=== PATIENT | female | born 1995 | race Caucasian/White ===

== ENCOUNTER → 2024-02-09 13:42 | Outpatient (CLI) | payer OTHER, SELFPAY ==
--- NOTE | 2024-02-09 14:28 | DI.MRI.S_ITS ---
PROCEDURE: MR HIP RT WO CON INDICATIONS: Right hip pain TECHNIQUE: Noncontrast coronal T1 spin echo and STIR through the bony pelvis. Coronal and axial T2 fast spin echo with fat saturation, sagittal T1 spin echo, and oblique axial T2 fast spin echo with fat saturation through the hip. COMPARISON: None. FINDINGS: Image quality: Excellent. Bones and joints: The marrow signal is within normal limits. There is no acute fracture or dislocation. There is normal morphology of the femoral heads without osteonecrosis. The hip joint and sacroiliac joints are preserved without any significant effusions. Tendons and ligaments: There is mild bilateral hamstring tendinosis (4/23; 3/11). There is mild right gluteus medius tendinosis (3/16). The other visualized tendons and ligaments are within normal limits. Labrum and cartilage: The acetabular labrum appears intact in the absence of intra-articular contrast. Cartilage surface of the femoral head appears of normal thickness. The alpha angle of the femur is within normal limits at less than 55 degrees. Soft tissues: Visualized muscles demonstrate normal bulk and internal signal. Quadratus femoris muscle demonstrates no internal edema to suggest ischiofemoral impingement. The proximal sciatic neurovascular bundle appears normal adjacent to the hamstring tendons. No free pelvic fluid. Bladder wall thickness is normal. Genitourinary structures and bowel loops appear normal where visualized. IMPRESSION: 1. Mild right gluteus medius tendinosis. 2. Mild bilateral hamstring tendinosis. Dictated by: Arley Chairez M.D. on 02/09/2024 at 17:08 Approved by: Arley Chairez M.D. on 02/09/2024 at 17:15
== END ==
PROVIDERS: Referring Provider Student in an Organized Health Care Education/Training Program; Visit Provider Student in an Organized Health Care Education/Training Program
DX: M67.951 Unspecified disorder of synovium and tendon, right thigh (principal); M67.952 Unspecified disorder of synovium and tendon, left thigh; M25.551 Pain in right hip
CPT/HCPCS: 73721